=== PATIENT | male | born 1995 | race African-American/Black ===

== ENCOUNTER 2017-06-07 21:27 | Emergency (ER) | payer OTHER ==
[~2017-06-07] VITALS: Ht 182.9 cm; Wt 90.9 kg
[2017-06-07 23:40] VITALS: BP 130/84
== END 2017-06-07 23:55 | disposition home or self-care (01) ==
LOC: EMS 21:28
DX: S00.11XA Contusion of right eyelid and periocular area, initial encounter (principal); R05 Cough; W50.0XXA Accidental hit or strike by another person, initial encounter; Y93.67 Activity, basketball; Y92.89 Other specified places as the place of occurrence of the external cause; Y99.8 Other external cause status
CPT/HCPCS: 70486; 71020; 99284